=== PATIENT | male | born 1950 | race Caucasian/White ===

== ENCOUNTER 2016-07-30 11:28 | Observation (INO) | payer MEDICARE, OTHER ==
[2016-07-30] MEDS ORDERED: ASPIRIN 325 MG TAB PO ONE (11:40)
--- NOTE | 2016-07-30 11:43 | EDPRACDOC ---
- General Information Chief Complaint: Altered Mental Status Stated Complaint: CHEST PAIN/SYNCOPAL EPISODE Time Seen by Provider: 07/30/16 11:37 Information Source: Patient Mode Of Arrival: Car Home Medications: Home Medications Atenolol 100 mg PO HS 09/13/15 Prednisone [Deltasone, Orasone] 10 mg PO HS 09/13/15 Allergies/Adverse Reactions: Allergies Allergy/AdvReac Type Severity Reaction Status Date / Time codeine Allergy Severe Angioedema* Verified 07/30/16 11:41 - History of Present Illness Onset: 2 hours HPI: PATIENT PRESENTS AFTER HE NEARLY PASSED OUT AT HOME AFTER GETTING UP FROM COUCH. STATES HE CAUGHT HIM SELF AND THINKS IT WAS ONLY A FEW SECONDS. STATES HE HAS HAD MIDSTERNAL CP INTERMITTENTLY FOR 3 DAYS. FELT IT WAS GASTRITIS. NO FEVER. NO COUGH. NO HEADACHE Duration: Minutes Presyncopal phase:: Reports: Premonition Syncopal phase:: Reports: With standing Postsyncopal phase:: Reports: Rapid recovery Prehospital care: Reports: None Associated Signs/Symptoms: Reports: Chest pain ED Past Medical History - History Reviewed Yes Nurses notes reviewed and agree except as marked Travel Outside of US in the Last 3 Months?: No - Patient Medical History Cardiac History: Reports: Hypertension Respiratory History: Surgical History: Reports: No Significant History - Family Medical History Reports: Hypertension (MOTHER). Denies: Diabetes, Cancer, Stroke, Cardiac Disorders - Social Medical History Smoking Status: Heavy tobacco smoker (5 or more cigarettes/day or daily pipe/ cigar) Substance Abuse: None Lives With: Family Lives In: Home EDM Review of Systems - Review of Systems ROS Negative Except as Marked: Yes All systems reviewed and were negative except as marked Constitutional: No Symptoms Reported. negative: Fever, Chills, Weakness, Fatigue, Loss of Appetite Eyes: No Symptoms Reported. negative: Redness, Blurred Vision, Double Vision, Discharge, Pain, Light Sensitive, Photophobia Ears: No Symptoms Reported. negative: Pain, Hearing Loss, Drainage, Ear Pulling Throat: No Symptoms Reported. negative: Pain, Swelling Nose: No Symptoms Reported. negative: Congestion, Bleeding, Discharge, Injection, Swelling, Deformity, Ecchymosis, Tender, Abrasion, Laceration Mouth: No Symptoms Reported. negative: Pain, Drooling Respiratory: No Symptoms Reported. negative: Cough, Brassy Cough, Barky Cough, Shortness of Breath, Wheezing, Hemoptysis Cardiovascular: Chest Pain, Syncope. negative: Cyanosis, Edema, Orthopnea, Palpitations, PND, Skin Mottling Gastrointestinal: No Symptoms Reported. negative: Pain, Constipation, Nausea, Vomiting, Diarrhea, Melena, Formula Intolerance Genitourinary: No Symptoms Reported. negative: Dysuria, Hematuria, Frequency, Discharge, Bleeding, Testicular Pain, Neurological: No Symptoms Reported. negative: Headache, Dizziness, Seizure, Numbness, Weakness, Speech Difficulty, Gait Difficulty Musculoskeletal: No Symptoms Reported. negative: Neck, Chestwall, Ribs, Back, Shoulder, Arm, Elbow, Forearm, Wrist, Hand, Pelvis, Hip, Femur, Knee, Leg, Ankle , Foot Integumentary: No Symptoms Reported. negative: Itching, Rash, Bruising, Wound Allergic/Immunologic: No Symptoms Reported. negative: Hives, Itching Hematologic: No Symptoms Reported. negative: Lymphadenopathy, Easy Bruising, Easy Bleeding Endocrine: No Symptoms Reported. negative: Weight Gain, Weight Loss Psychiatric: No Symptoms Reported. negative: Anxiety, Depression, Hallucinations, Insomnia, Suicidal - Physical Exam Constitutional: Alert (Awake), No apparent distress Oriented to: Time, Person, Place Last recorded Vital Signs: Last Vital Signs Temp 98.1 F 07/30/16 11:37 Pulse 67 07/30/16 11:37 Resp 18 07/30/16 11:37 BP 188/117 H 07/30/16 11:37 Pulse Ox 99 07/30/16 11:37 Oxygen Pulse Oxygen Saturation 99 O2 Device Room Air Oxygen Flow Rate Fraction of Inspired Oxygen ( FIO2) - HEENT Head: Normal ( normocephalic) Eye Exam: Normal (PERRL, EOMI, Sclera white) Oropharynx: Normal (Pharynx:Moist without exudate,Gums-no swelling) Tympanic Membrane: Normal ENT EAC: Normal TMJ: Normal Nose: No Symptoms Reported (septum midline) Neck: Normal (FROM, trachea at midline) - Respiratory/Cardiovascular Respiratory: Normal - CTA (BBS clear to auscultation without adventitious sounds ) Cardiovascular: Normal (RRR without murmur, gallop or rub) - GI Auscultation: Normal (NABS) Palpation: Normal (Soft,No rebound or guarding, non distended) Tenderness: Non tender Woody's Sign: Negative - Musculoskeletal Back: Normal (Non-Tender) Extremities: Normal (Normal tone, Pulses 2+ No cyanosis or edema, FROM) - Integumentary Skin: Normal, Warm, Dry Lymphatics: Normal (no adenopathy) - Neurologic Memory Impaired: Normal Motor Function: Normal (Normal tone, Pulses 2+ No cyanosis or edema, FROM) Cranial Nerve: Normal (CN II-X11 intact sensation, strength 5/5) Cerebellar: Normal Mood Description: Normal Perception: Normal - Results 07/30/16 11:48 07/30/16 11:48 - EKG EKG #1 EKG Time: 11:44 -: Yes EKG interpreted by me Rate: bpm: 63 [place]: Normal Rhythm: NSR Block: None Hypertrophy: None ST: Normal - Departure Yes I personally saw and evaluated the patient. Disposition: Admit IP To This Hospital Condition: Fair Final Diagnosis: Unstable angina, Poorly-controlled hypertension Syncope Qualifiers: Syncope type: unspecified Qualified Code(s): R55 - Syncope and collapse Education/Counseling Given To: Patient Education/Counseling Given Regarding: Diagnosis, Treatment, Prognosis Decision to Admit Time: 13:04 Decision to admit date: 07/30/16 Decision to admit: from ED - Physician Consulted Hospitalist Time Called: 13:04 Provider Called: Jose Enrique Morgan Time Compliance Review Officer Returned Call: 13:04
[2016-07-30 11:56] LABS: AUTOMATED BASOPHIL 1.2 % (0-2); AUTOMATED EOSINOPHIL 1.7 % (0-5); AUTOMATED LYMPH 27.2 % (17-44); AUTOMATED MONOCYTE 10.1 % (3-10); AUTOMATED NEUTROPHIL 59.8 % (45-76); MPV 10.3 fL (7.4-10.4)
[2016-07-30 12:09] LABS: BLOOD UREA NITROGEN 18 MG/DL (9-20); CALCIUM 9.3 MG/DL (8.4-10.2); CALCULATED OSMOLALITY 278 MOs/Kg (270-290); CHLORIDE 102 mEq/L (98-107); GLUCOSE 111 MG/DL (70-99); SODIUM LEVEL 143 mEq/L (137-146); TOTAL PROTEIN 7.8 G/DL (6.3-8.2)
[2016-07-30 12:11] LABS: PARTIAL THROMB. TIME 25.7 SEC (22-35)
[2016-07-30] MEDS ORDERED: LABETALOL 20 MG/4 ML SYRINGE IV ONE (13:02)
[2016-07-30] MEDS ORDERED: NITROGLYCERINE 2 % OINTMENT PACK TOP ONE (13:04)
--- NOTE | 2016-07-30 13:15 | DIRPT ---
CLINICAL DATA: Pre syncope today EXAM: PORTABLE CHEST 1 VIEW COMPARISON: 06/18/2014. FINDINGS: The lungs are clear wiithout focal pneumonia, edema, pneumothorax or pleural effusion. The cardiopericardial silhouette is within normal limits for size. The visualized bony structures of the thorax are intact. Telemetry leads overlie the chest. IMPRESSION: Stable. No acute findings. Electronically Signed By: Greg Llanes M.D. On: 07/30/2016 13:12
[2016-07-30] MEDS ORDERED: NITROGLYCERINE 0.4 MG TAB SL PRN (14:11)
--- NOTE | 2016-07-30 14:15 | HISTPHYS ---
- Chief Complaint Near syncopal episode at home 2 hours ago. - History of Present Illness PATIENT PRESENTS AFTER HE NEARLY PASSED OUT AT HOME AFTER GETTING UP FROM COUCH. STATES HE CAUGHT HIM SELF AND THINKS IT WAS ONLY A FEW SECONDS. STATES HE HAS HAD MIDSTERNAL CP INTERMITTENTLY FOR 3 DAYS. FELT IT WAS GASTRITIS. NO FEVER. NO COUGH. NO HEADACHE Duration: Minutes Presyncopal phase:: Reports: Premonition Syncopal phase:: Reports: With standing Postsyncopal phase:: Reports: Rapid recovery Prehospital care: Reports: None Associated Signs/Symptoms: Reports: Chest pain Patient with a long history of gastroesophageal reflux disease states reflux is worsening. Yesterday he walked 10 miles in the [place] and feels that his reflux was significantly bad. It is not associated with any diaphoresis or other symptoms but he did get better with treatment in the emergency department. Frequently takes a lot of Tums. Am very concerned that his reflux is actually heartburn which is his chest pain equivalent. - Medical History Cardiac History: Reports: No Significant History, Hypertension Respiratory History: Reports: No Significant History GI/ History: Reports: No Significant History Musculoskeletal History: Reports: No Significant History Systemic History: Reports: No Significant History Neurological History: Reports: No Significant History Psychological History: Reports: No Significant History - Surgical History Reports: No Significant History - Medictions/Allergies Allergies codeine Allergy (Severe, Verified 07/30/16 11:41) Angioedema* Home Medications Atenolol 100 mg PO HS 09/13/15 Prednisone [Deltasone, Orasone] 10 mg PO HS 09/13/15 - Family History Reports: No Significant History, Hypertension (MOTHER). Denies: Diabetes, Cancer, Stroke, Cardiac Disorders - Social History Travel Outside of US in the Last 3 Months?: No Lives: Alone Smoking Status: Heavy tobacco smoker (5 or more cigarettes/day or daily pipe/ cigar) Social History: Denies: Amphetamine Use, Alcohol Use, Substance Use Disorder - Review of Systems Constitutional: No Symptoms Reported (No Fever, chills, wt loss/gain, diaphoresis,fatigue/malaise.) Eyes: No Symptoms Reported (No blurry vision, visual changes, eye pain, or eye redness.) Ears: No Symptoms Reported (No ear pain or discharge) Nose: No Symptoms Reported (No nasal discharge/congestion or bleeding) Mouth: No Symptoms Reported (No oropharyngeal lesions or erythema) Throat/Neck: No Symptoms Reported (No throat pain or swelling.No oropharyngeal lesions or erythema.) Respiratory: Cough, Wheezing, Pleurisy Cardiovascular: No Symptoms Reported, Palpitations, Other Gastrointestinal: No Symptoms Reported (No abdominal pain, nausea, vomiting, diarrhea, constipation, or bloody stool.) Genitourinary: No Symptoms Reported (No dysuria or hematuria.) Neurological: No Symptoms Reported (No headache, dizziness, seizures, or focal weakness.) Musculoskeletal:: No Symptoms Reported Integumentary: No Symptoms Reported Allergic/Immunologic: No Symptoms Reported (no rashes or lesions) Hematologic: No Symptoms Reported (No chronic anemia, bleeding, or easy bruising.), Other (Lymphatics- no lymph node swelling or pain.) Endocrine: No Symptoms Reported (No thyroid issues, polyuria, or polydipsia.) Psychiatric: No Symptoms Reported (Fully oriented, with normal and appropriate affect.) - Physical Exam Vital Signs: Initial Vitals Temperature 98.1 F 07/30/16 11:37 Pulse Rate 67 07/30/16 11:37 Respiratory Rate 18 07/30/16 11:37 Blood Pressure 188/117 H 07/30/16 11:37 Pulse Oxygen Saturation 99 07/30/16 11:37 Constitutional: No apparent distress, Well nourished. negative: Well appearing Oriented to: Time, Person, Place - HEENT Head: Normal (normocephalic, atraumatic.), Other (No cervical lymphadenopathy. No supraclavicular lymphadenopathy. Neck: No palpable mass, supple , trachea midline.) Eye: Normal (pupils equal, reactive to light, and round; EOMI, Sclera white) Oropharynx: Normal (Pharynx: Moist without exudate,Gums-no swelling, No oropharyngeal lesions or erythema, Mucous membranes are dry.) Nose: No Symptoms Reported (septum midline, Nares patent, without discharge or bleeding.) Respiratory: Normal - CTA (Clear to auscultation bilaterally. No wheezing, rales , rhonchi. Chest wall movements are symmetric. No use of accessory muscles to breathe.) Cardiovascular: Normal (RRR , Normal S1, S2. No murmurs, rubs, or gallops. PMI non-displaced. Carotids: no carotid bruits. No bradycardia or tachycardia. DP pulses 2+ bilaterally.) - GI Auscultation: Normal (normal active sounds) Palpation: Normal (Soft,non distended,nontender. No hepatosplenomegaly.) Tenderness: Non tender (No rebound or guarding) Woody's Sign: Negative - Musculoskeletal Back: Normal (Non-Tender) Extremities: Normal (Normal tone, DP pulses 2+ bilaterally, No cyanosis or edema bilaterally, FROM bilaterally.) - Integumentary Skin: Normal (Clean, dry, and intact. No rashes. No lesions.) Lymphatics: Normal (No cervical lymphadenopathy. No supraclavicular lymphadenopathy.) - Neurologic Memory Impaired: Normal Motor Function: Normal (Motor 5/5 throughout.Normal tone, Pulses 2+ No cyanosis or edema, FROM) Cranial Nerve: Normal (CN II-XII intact sensation, strength 5/5) Cerebellar: Normal (Babinski: toes downgoing bilaterally. Intact Finger to nose. Sensory grossly intact to light touch. Intact rapid alternating movements bilaterally. No pronator drift.) Mood Description: Normal (Fully oriented. Normal and appropriate affect.) Perception: Normal (Normal and appropriate affect.) - Focused CV Perfusion Exam Vital Signs: Last Vital Signs Temp 98.1 F 07/30/16 11:37 Pulse 65 07/30/16 13:57 Resp 17 07/30/16 13:57 BP 196/108 H 07/30/16 13:57 Pulse Ox 97 07/30/16 13:57 - Lab Results Laboratory Results - last 24 hr 07/30/16 07/30/16 07/30/16 11:48 11:48 11:48 WBC 13.8 H RBC 5.11 Hgb 14.8 Hct 45.1 MCV 88 MCH 29.0 MCHC 32.9 L RDW 14.4 Plt Count 182 MPV 10.3 Neut % (Auto) 59.8 Lymph % (Auto) 27.2 [place] % (Auto) 10.1 H Eos % (Auto) 1.7 Baso % (Auto) 1.2 Absolute Neuts (auto) 8.14 Absolute Lymphs (auto) 3.73 PT 10.4 INR 1.0 APTT 25.7 Sodium 143 Potassium 3.5 Chloride 102 Carbon Dioxide 31 Anion Gap 14 BUN 18 Creatinine 1.10 Estimated GFR (MDRD) > 60 Glucose 111 H Calculated Osmolality 278 Calcium 9.3 Total Bilirubin 0.6 AST 28 ALT 36 Alkaline Phosphatase 59 Troponin I 0.22 Pks-S-Mgjxqoqpqel Pept 780 Total Protein 7.8 Albumin 4.0 - Diagnostic Findings EXAM: PORTABLE CHEST 1 VIEW COMPARISON: 06/18/2014. FINDINGS: The lungs are clear wiithout focal pneumonia, edema, pneumothorax or pleural effusion. The cardiopericardial silhouette is within normal limits for size. The visualized bony structures of the thorax are intact. Telemetry leads overlie the chest. IMPRESSION: Stable. No acute findings. Electronically Signed By: Greg Llanes M.D. On: 07/30/2016 13:12 EKG Time: 11:44 -: Yes EKG interpreted by me Rate: bpm: 63 [place]: Normal Rhythm: NSR Block: None Hypertrophy: None ST: Normal - Assessment (1) Malignant hypertension I10 - ESSENTIAL (PRIMARY) HYPERTENSION Acute Present on Admission: Yes Patient will be admitted into the hospital started on a nitroglycerin drip. Will continue his home medications. (2) Unstable angina I20.0 - UNSTABLE ANGINA Acute Present on Admission: Yes Start nitroglycerin drip which will also help with unstable angina monitor patient's troponins closely planned stress test in a.m.. (3) Syncope R55 - SYNCOPE AND COLLAPSE Acute Qualifiers: Syncope type: unspecified Qualified Code(s): R55 - Syncope and collapse Monitor closely this could be related to a cardiac issue. Patient's troponins are indeterminate. (4) GERD (gastroesophageal reflux disease) K21.9 - GASTRO-ESOPHAGEAL REFLUX DISEASE WITHOUT ESOPHAGITIS Acute Present on Admission: Yes Qualifiers: Esophagitis presence: esophagitis presence not specified Qualified Code(s) : K21.9 - Gastro-esophageal reflux disease without esophagitis Continue home medication regimen. - Plan Admit rule out control blood pressure stress test in a.m. P Case Care Discussed with: Patient, Family Total Time: 55 minutes. Critical Care: No Couseling Time (>50% in counseling/coordination): No
[2016-07-30] MEDS ORDERED: Nitroglycerin D5W 50,000 MCG/250 ML IVBOT IV SCH (15:00)
[2016-07-30] MEDS ORDERED: Pharmacy Order Set Alert SCH (15:00)
[2016-07-30] MEDS: ASPIRIN 325 MG TAB PO SCH (15:07)
[2016-07-30] MEDS: LISINOPRIL 10 MG TAB PO SCH (15:52)
[2016-07-30] MEDS ORDERED: Vaccine Screening Complete SCH (16:00)
[2016-07-30] MEDS ORDERED: PANTOPRAZOLE 40 MG TAB PO ONE (17:00)
[2016-07-30] MEDS ORDERED: HYDROCHLOROTHIAZIDE 25 MG TAB PO ONE (17:00)
[2016-07-30] MEDS: NITROGLYCERINE 2 % OINTMENT PACK TOP SCH (17:23)
[2016-07-30] MEDS ORDERED: ENOXAPARIN 40 MG/0.4 ML PFS SQ SCH (18:00)
[2016-07-30] MEDS ORDERED: PREDNISONE 10 MG TAB PO SCH (21:00)
[2016-07-30] MEDS ORDERED: ATENOLOL 50 MG TAB PO SCH (21:00)
[2016-07-31] MEDS ORDERED: REMOVE NITROGLYCERIN PASTE MAR ALERT SCH
[2016-07-31] MEDS: NITROGLYCERINE 2 % OINTMENT PACK TOP SCH ×2 (04:24→15:10)
[2016-07-31 05:32] LABS: LDL (calc.) 119.8 MG/DL (<100); VLDL (calc.) 26.2 MG/DL (5-40)
[2016-07-31] MEDS ORDERED: PANTOPRAZOLE 40 MG TAB PO SCH (06:00)
[2016-07-31 06:22] VITALS: BMI 24.7
[2016-07-31] MEDS ORDERED: FLU VACCINE (Afluria) 0.5 ML DOSE IM ONE (08:00)
[2016-07-31] MEDS ORDERED: PNEUMOCOCCAL 0.5 ML VIAL IM ONE (08:00)
[2016-07-31] MEDS ORDERED: HYDROCHLOROTHIAZIDE 25 MG TAB PO SCH (09:00)
[2016-07-31] MEDS: ASPIRIN 325 MG TAB PO SCH (11:06)
[2016-07-31] MEDS: LISINOPRIL 10 MG TAB PO SCH (11:17)
[2016-07-31] MEDS ORDERED: REGADENOSON 0.4 MG/5 ML SYRINGE IV ONE (14:00)
[2016-07-31] MEDS ORDERED: SODIUM CHLORIDE 0.9% 10 ML FLUSH FLUSH ONE (14:00)
[2016-07-31 15:44] VITALS: BP 119/71; PULSE 69; TEMP 97.9
--- NOTE | 2016-07-31 15:58 | PCM.STRESS ---
REGADENOSON MYOCARDIAL PERFUSION STRESS TEST DATE OF PROCEDURE: 07/31/16 INDICATION: chest pain, DE ruled out. RESTING DATA: HR 68 per minute B/P 130/68 Chest diffuse wheeze, cleared following nebulizer Cor: Regular rhythm, no murmur or gallop RESTING EKG: Normal sinus normal trace . PROTOCOL: Approx 8 mCi of technetium-99m pyrophosphate (Cardiolyte) was injected intravenously and tomograhic imaging performed at rest. An hour later, the patient performed treadmill exercise, but was able to achieve only a workload of 4 Mets and heart rate of 88 per minute, having to stop because of bilateral calf pain. Placed at rest, 0.4 mg of regadenoson was then injected as an IV bolus, followed by an additional 25 mCi of Cardiolyte and tomographic imaging repeated. Heart rate [kristina to] 100 per minute. BP remained stable in range of 130/68 Patient tolerated well. No chest pain. STRESS EKG: Rhythm: Sinus. ST-T changes: No ST-T changes during sub maximal exercise, or following Lexiscan administration [No arrhythmias or pauses] MYOCARDIAL PERFUSION IMAGING: Rotational display of raw projection data documents [stable pt position during imaging]. [There is a high right hemidiaphragm and prominent hepatic uptake]. [Clear potential for ] [diaphragm] [attenuation artifact is suggested]. Indeed, there is a vague area of mild decreased counts density in the posterior wall on both rest and stress imaging. No areas of stress- induced hypoperfusion are identified. Gated imaging discloses an end systolic volume of 41 mL with an ejection fraction of 53%. IMPRESSION: (1) Functional capacity was limited by leg pain, possible claudication (2) Borderline resting left ventricular size and function, with end- systolic volume of 41 ml and ejection fraction of 53 %. (3) mild diaphragm attenuation artifact (4) [No areas of vasodilator induced hypoperfusion are identified] Negative pharmacologic perfusion stress test for potential ischemia.
--- NOTE | 2016-07-31 16:01 | PCM.DCS92 ---
- Final/Secondary Discharge Diagnosis (1) Malignant hypertension Acute I10 - ESSENTIAL (PRIMARY) HYPERTENSION Present on Admission: Yes Comment: Patient will be admitted into the hospital started on a nitroglycerin drip. Will continue his home medications. (2) Unstable angina Ruled-out I20.0 - UNSTABLE ANGINA Present on Admission: Yes Comment: Start nitroglycerin drip which will also help with unstable angina monitor patient's troponins closely planned stress test in a.m.. (3) Syncope Resolved R55 - SYNCOPE AND COLLAPSE unspecified R55 - Syncope and collapse Comment: Monitor closely this could be related to a cardiac issue. Patient's troponins are indeterminate. (4) GERD (gastroesophageal reflux disease) Acute K21.9 - GASTRO-ESOPHAGEAL REFLUX DISEASE WITHOUT ESOPHAGITIS Present on Admission: Yes esophagitis presence not specified K21.9 - Gastro-esophageal reflux disease without esophagitis Comment: Continue home medication regimen. Discharge Disposition: Home Discharge Condition: Improved Cognitive Discharge Status: Unimpaired Fuctional Discharge Status: Independent Physician Follow up/Referrals: None,No Provider [Family Provider] - One Week New Prescriptions: Omeprazole 40 mg PO DAILY #30 capsule. Lisinopril [Zestril] 10 mg PO DAILY #30 tablet Discharge Home Medication List Atenolol 100 mg PO HS 09/13/15 [History Confirmed 07/30/16] Prednisone [Deltasone, Orasone] 10 mg PO HS 09/13/15 [History Confirmed 07/30/16 ] Lisinopril [Zestril] 10 mg PO DAILY #30 tablet 07/31/16 [Rx] Omeprazole 40 mg PO DAILY #30 capsule. 07/31/16 [Rx] New Discharge Medications (Rx) Lisinopril [Zestril] 10 mg PO DAILY #30 tablet 07/31/16 [Rx] Omeprazole 40 mg PO DAILY #30 capsule. 07/31/16 [Rx] O2 Device: Room Air Additional Instructions: Follow up with your primary care provider (nurse practitioner) in [place] in the next week. She can evaluate you for stomach related issues causing chest pains. I have started you on medication to decrease the stomach discomfort and help with acid reflux. Diet at Discharge: Heart Healthy, Low Salt Activity: No Restrictions, As Tolerated Call Office For: Worsening Symptoms, Fever over 100.5, Pain Uncontrolled By Meds - DC Summary Notes Hospital Course Note:: Discharge summary on patient named MARIELA KELLY admitted to [facility] on 07/30/16 by Charissa Dale MD. Date of discharge is []. The patient was admitted under observation and serial cardiac enzymes and EKGs were obtained. The patient ruled out for myocardial infarction by serial enzymes and EKGs. The patient then underwent a stress test. The stress test showed no evidence of reversible ischemia. The patient is stable for discharge home. Patient with symptoms of reflux and heartburn. I have started Protonix he is to follow up with his nurse practitioner in [facility] for further evaluation and management. Total Time: 45 min Code: 67913 (>30min.) - Physical Exam Vital Signs: Last Vital Signs Temp 97.9 F 07/31/16 15:43 Pulse 69 07/31/16 15:43 Resp 16 07/31/16 15:43 BP 119/71 07/31/16 15:43 Pulse Ox 94 07/31/16 15:43 Oxygen Pulse Oxygen Saturation 94 O2 Device Room Air Oxygen Flow Rate Fraction of Inspired Oxygen ( FIO2) Constitutional: No apparent distress, Well nourished. negative: Well appearing Oriented to: Time, Person, Place - HEENT Head: Normal (normocephalic, atraumatic.), Other (No cervical lymphadenopathy. No supraclavicular lymphadenopathy. Neck: No palpable mass, supple , trachea midline.) Eye: Normal (pupils equal, reactive to light, and round; EOMI, Sclera white) Oropharynx: Normal (Pharynx: Moist without exudate,Gums-no swelling, No oropharyngeal lesions or erythema, Mucous membranes are dry.) Nose: No Symptoms Reported (septum midline, Nares patent, without discharge or bleeding.) - Respiratory/Cardiovascular Respiratory: Normal - CTA (Clear to auscultation bilaterally. No wheezing, rales , rhonchi. Chest wall movements are symmetric. No use of accessory muscles to breathe.) Cardiovascular: Normal (RRR , Normal S1, S2. No murmurs, rubs, or gallops. PMI non-displaced. Carotids: no carotid bruits. No bradycardia or tachycardia. DP pulses 2+ bilaterally.) - GI Auscultation: Normal (normal active sounds) Palpation: Normal (Soft,non distended,nontender. No hepatosplenomegaly.) Tenderness: Non tender (No rebound or guarding) Woody's Sign: Negative - Musculoskeletal Back: Normal (Non-Tender) Extremities: Normal (Normal tone, DP pulses 2+ bilaterally, No cyanosis or edema bilaterally, FROM bilaterally.) - Integumentary Skin: Normal (Clean, dry, and intact. No rashes. No lesions.) Lymphatics: Normal (No cervical lymphadenopathy. No supraclavicular lymphadenopathy.) - Neurologic Memory Impaired: Normal Cerebellar: Normal (Babinski: toes downgoing bilaterally. Intact Finger to nose. Sensory grossly intact to light touch. Intact rapid alternating movements bilaterally. No pronator drift.) Mood Description: Normal (Fully oriented. Normal and appropriate affect.) Perception: Normal (Normal and appropriate affect.)
--- NOTE | 2016-07-31 16:45 | CAPUEKG ---
[place], [place] Test Date: 2016-07-30 Pat Name: MARIELA KELLY Department: Room: 425 Gender: Male Mail Clerk Bills: AZEEM QUINTANAB: Requested By: Order Number: Reading MD: Jones Iniguez Measurements Intervals [place] Rate: 72 P: 67 WI: 144 QRS: 53 QRSD: 90 T: 52 QT: 398 QTc: 435 Interpretive Statements Normal sinus rhythm Normal ECG Electronically Signed On 07-31-16 16:44:30 EST by Jones Iniguez <[id number] [id number]
== END 2016-07-31 17:05 | disposition home or self-care (01) ==
LOC: ED 11:28 → PCU 14:11
PROVIDERS: ADMIT Hospitalist; ATTEND Hospitalist
DX: I10 Essential (primary) hypertension (principal); R55 Syncope and collapse; K21.9 Gastro-esophageal reflux disease without esophagitis; F17.210 Nicotine dependence, cigarettes, uncomplicated; Z23 Encounter for immunization; Z79.52 Long term (current) use of systemic steroids; Z79.899 Other long term (current) drug therapy
CPT/HCPCS: 36415; 71010; 78452; 80053; 80061; 82947; 83880; 84484; 85025; 85610; 85730; 90732; 93005; 93017; 96372; 96374; 99284; 99406; A4216; A9270; G0008; G0009; G0378; J1650; J2785; J3490; Q2035; 90471; 90656